=== PATIENT | male | born 1955 | race Caucasian/White ===

== ENCOUNTER 2021-05-30 11:27 | Emergency (ER) | payer MEDICARE ==
[~2021-05-30] VITALS: Ht 177.8 cm; Wt 61.2 kg
[~2021-05-30 11:27] MED LIST: AZITHROMYCIN 2250 MG PO; FENTANYL PA50 MCG/HR TP; LEVAQUIN 500 M500 M2 GT; LEVAQUIN 500 M500 MG PO; LEVOXYL75 MCG; OXYCODONE GT; PREDNISONE50 MG PO; PROMETHAZINE D480 M1 PO; TESSALON PERLE100 MG PO; VICODIN; XANAX; [UNRECOGNIZED DRUG - REMARK]
[2021-05-30 12:11] LABS: ABSOLUTE LYMPHOCYTES 0.4 thou/uL (0.8-5.3); ABSOLUTE MONOCYTES 0.3 thou/uL (0.0-1.2); ABSOLUTE NEUTROPHILS 2.4 thou/uL (1.6-8.1); BASOPHILS 0.6 %; EOSINOPHILS 0.2 %; HEMOGLOBIN 13.4 gm/dL (14.0-18.0); LYMPHOCYTES 13.3 %; MCHC 34.4 g/dL (28.0-37.0); MCV 81.5 fL (80.0-100.0); NUCLEATED RBCS 0 /100WBC; PLATELET COUNT* 184 thou/uL (150-400); POLYS 75.9 %; RBC 4.78 mil/uL (4.50-6.00); RDW-CV 15.1 % (10.5-14.5); WBC 3.1 thou/uL (4.0-11.0)
[2021-05-30 12:21] LABS: CALCIUM 8.2 mg/dL (8.5-10.1); CREATININE 0.9 mg/dL (0.6-1.3); POTASSIUM 4.1 mmol/L (3.5-5.1)
[2021-05-30 12:32] LABS: ALBUMIN 3.1 g/dL (3.4-5.0); MAGNESIUM 1.9 mg/dL (1.8-2.4); TOTAL BILIRUBIN 0.2 mg/dL (<0.1-1.0); TOTAL PROTEIN 7.3 g/dL (6.4-8.2)
[2021-05-30] MEDS ORDERED: FLEXERIL PO (13:26)
[2021-05-30] MEDS ORDERED: VENTOLIN HFA 1818 GM INH (13:26)
[2021-05-30] MEDS ORDERED: ZPAK PO (13:26)
[2021-05-30 13:45] VITALS: BP 140/86
--- NOTE | 2021-05-31 09:48 | EKG ---
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
== END 2021-05-30 13:45 | disposition home or self-care (01) ==
LOC: M.ERS 11:27
PROVIDERS: Nurse Practitioner Family
DX: U07.1 COVID-19 (principal); E03.9 Hypothyroidism, unspecified; F17.210 Nicotine dependence, cigarettes, uncomplicated; Z85.118 Personal history of other malignant neoplasm of bronchus and lung; Z85.89 Personal history of malignant neoplasm of other organs and systems

== ENCOUNTER 2021-06-17 15:31 | Emergency (ER) | payer MEDICARE ==
[~2021-06-17] VITALS: Ht 177.8 cm; Wt 61.2 kg
[~2021-06-17 15:31] MED LIST changes: +FLEXERIL PO; +VENTOLIN HFA 1818 GM INH; +ZPAK PO
[2021-06-17 15:59] LABS: ABSOLUTE BASOPHILS 0.1 thou/uL (0.0-0.2); ABSOLUTE EOSINOPHILS 0.1 thou/uL (0.0-0.7); ABSOLUTE LYMPHOCYTES 0.9 thou/uL (0.8-5.3); ABSOLUTE MONOCYTES 0.7 thou/uL (0.0-1.2); ABSOLUTE NEUTROPHILS 6.9 thou/uL (1.6-8.1); BASOPHILS 1.2 %; EOSINOPHILS 1.2 %; HEMATOCRIT 38.1 % (42.0-52.0); LYMPHOCYTES 10.3 %; MCH 27.8 pg (26.0-34.0); MCV 81.5 fL (80.0-100.0); MONOCYTES 7.9 %; MPV 7.2 fl. (7.2-11.1); NUCLEATED RBCS 0 /100WBC; PLATELET COUNT* 373 thou/uL (150-400); POLYS 79.4 %; RBC 4.67 mil/uL (4.50-6.00); RDW-CV 15.2 % (10.5-14.5); WBC 8.6 thou/uL (4.0-11.0)
[2021-06-17 16:03] LABS: CALCIUM 8.9 mg/dL (8.5-10.1); CREATININE 1.6 mg/dL (0.6-1.3); POTASSIUM 4.9 mmol/L (3.5-5.1)
[2021-06-17 16:08] LABS: TOTAL BILIRUBIN 0.5 mg/dL (<0.1-1.0); TOTAL PROTEIN 7.3 g/dL (6.4-8.2)
--- NOTE | 2021-06-17 16:22 | EKG ---
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1955 Requested By: Lui aVrgas Order Number: [id number] MD: Philip Rico Measurements Intervals [place] Rate: 85 P: 86 [place]: 151 QRS: 74 QRSD: 102 T: 86 QT: 390 QTc: 464 Interpretive Statements Sinus rhythm Baseline wander in lead(s) V1,V3 Compared to ECG 05/30/2021 11:55:40 No significant changes Electronically Signed On 06-17-2021 16:22:02 CDT by Philip Rico [email or web address] <ELECTRONICALLY SIGNED> By: Philip Rico MD, [facility] 06/17/21 1622 1617 161 Philip Rico MD, [facility] /EPI
[2021-06-17] MEDS ORDERED: DIPHENHIST50 MG PO (17:01)
[2021-06-17] MEDS ORDERED: PREDNISONE50 MG PO (17:01)
[2021-06-17 17:06] VITALS: BP 101/74
== END 2021-06-17 17:07 | disposition home or self-care (01) ==
LOC: M.ERS 15:31
PROVIDERS: Emergency Medicine Emergency Medical Services
DX: K13.0 Diseases of lips (principal); T78.49XA Other allergy, initial encounter; N19 Unspecified kidney failure; E03.9 Hypothyroidism, unspecified; F17.210 Nicotine dependence, cigarettes, uncomplicated; Z87.01 Personal history of pneumonia (recurrent); Z85.118 Personal history of other malignant neoplasm of bronchus and lung; Z85.89 Personal history of malignant neoplasm of other organs and systems; X58.XXXA Exposure to other specified factors, initial encounter